=== PATIENT | female | born 1975 | race Caucasian/White ===

== ENCOUNTER 2019-09-09 14:35 | Emergency (ER) | payer MEDICARE ==
[~2019-09-09] VITALS: Ht 172.7 cm; Wt 72.6 kg
[~2019-09-09 14:35] MED LIST: AMBIEN 10 MG TA10 MG PO; AMBIEN 5 MG TABL5 M1 PO; AMITRIPTYLINE H50 M2 PO; APAP500 PO; BENTYL20 MG PO; CARAFATE 1 GM TA1 G1 PO; CARAFATE1 GM PO; CARAFATE1 GM/10 ML PO; DIFLUCAN100 MG PO; ERYTHROMYCIN250 M1 PO; ERYTHROMYCIN250 MG PO; FERROUS SULFAT325 MG PO; GI COCKTAIL PO; HYDROCODON-ACE1 EAC7 PO; HYDROCODON-ACE1 EACH PO; HYDROCODONE-ACET5 ML PO; HYDROCODONE-AP1 EA11 PO; HYDROCODONE-AP1 EAC6 PO; HYOSCYAMINE0.375 M2 PO; LINZESS290 MCG PO; LORTABELXR PO; MAALOX ADVANCE355 M1 PO; MIRALAX17 G1 PO; MIRALAX255 GM PO; NORCO 5-325 TA1 EAC1 PO; NORCO 5-325 TA1 EACH PO; OMEPRAZOLE10 MG PO; ONDANSETRON HCL4 M2 PO; OXYBUTYNIN PO; PERCOCET 5-3251 EACH PO; PERCOCET PO; PRILOSEC 20 MG20 MG PO; PRILOSEC20 MG PO; PRILOSEC40 MG PO; PROTONIX40 M1; PROTONIX40 M1 PO; PROTONIX40 M2 PO; PROTONIX40 MG PO; TOPAMAX50 MG; VENTOLIN HFA 1818 GM INH; VITAMIN B-12500 MCG PO; ZOFRAN ODT4 MG DISSOLVE; ZOFRAN ODT4 MG PO; ZOFRAN4 MG PO; ZOFRAN8 MG; ZPAK PO
[2019-09-09] MEDS ORDERED: ABILIFY 5 MG TAB5 M1 PO (14:46)
[2019-09-09] MEDS ORDERED: PAXIL20 MG PO (14:46)
[2019-09-09 15:13] LABS: URINE BILIRUBIN NEGATIVE (Negative); URINE BLOOD NEGATIVE (Negative); URINE CLARITY CLEAR; URINE COLOR YELLOW; URINE GLUCOSE-RANDOM NEGATIVE (Negative); URINE KETONES TRACE (Negative); URINE LEUKOCYTES-REFLEX NEGATIVE (Negative); URINE NITRITE-REFLEX NEGATIVE (Negative); URINE PROTEIN NEGATIVE (Negative); URINE UROBILINOGEN 0.2 E.U./dl (0.2-1.0)
[2019-09-09 15:20] LABS: AMP/METHAMP Negative (Negative); BARBITURATES Negative (Negative); BENZODIAZEPINES Negative (Negative); COCAINE Negative (Negative); METHADONE Negative (Negative); OPIATES POSITIVE (Negative); PCP Negative (Negative); THC POSITIVE (Negative)
[2019-09-09 15:52] LABS: ABSOLUTE BASOPHILS 0.1 thou/uL (0.0-0.2); ABSOLUTE EOSINOPHILS 0.1 thou/uL (0.0-0.7); ABSOLUTE LYMPHOCYTES 1.2 thou/uL (0.8-5.3); ABSOLUTE MONOCYTES 0.5 thou/uL (0.0-1.2); BASOPHILS 0.8 %; EOSINOPHILS 0.7 %; HEMATOCRIT 39.2 % (37.0-47.0); HEMOGLOBIN 13.4 gm/dL (12.0-15.0); LYMPHOCYTES 15.7 %; MCH 32.8 pg (26.0-34.0); MCHC 34.1 g/dL (28.0-37.0); MONOCYTES 6.1 %; MPV 7.3 fl. (7.2-11.1); NUCLEATED RBCS 0 /100WBC; PLATELET COUNT* 352 thou/uL (150-400); POLYS 76.7 %; RBC 4.09 mil/uL (4.20-5.00); RDW-CV 14.1 % (10.5-14.5); WBC 7.8 thou/uL (4.0-11.0)
[2019-09-09 16:01] LABS: CALCIUM 8.8 mg/dL (8.5-10.1); CREATININE 0.6 mg/dL (0.6-1.3); POTASSIUM 3.7 mmol/L (3.5-5.1)
[2019-09-09 16:05] LABS: ALBUMIN 3.9 g/dL (3.4-5.0); TOTAL BILIRUBIN 0.3 mg/dL (<0.1-1.0); TOTAL PROTEIN 7.8 g/dL (6.4-8.2)
[2019-09-09] MEDS ORDERED: FLAGYL500 M1 PO (16:26)
[2019-09-09 16:41] VITALS: BP 138/74
== END 2019-09-09 16:42 | disposition home or self-care (01) ==
LOC: M.ERS 14:35
PROVIDERS: Nurse Practitioner Psychiatric/Mental Health
DX: R19.7 Diarrhea, unspecified (principal); R11.2 Nausea with vomiting, unspecified; Z90.49 Acquired absence of other specified parts of digestive tract; Z98.84 Bariatric surgery status; Z90.721 Acquired absence of ovaries, unilateral; Z90.710 Acquired absence of both cervix and uterus